=== PATIENT | male | born 1995 | race Two or more races ===

== ENCOUNTER 2024-05-22 22:35 | Emergency (ER) | payer SELFPAY ==
[2024-05-22 23:11] LABS: #Basophils 0.1 thou/uL (0.0-0.2); #Eosinophils 0.2 thou/uL (0.0-0.7); #Lymphocytes 2.4 thou/uL (1.20-3.40); #Monocytes 0.5 thou/uL (0.11-0.59); #Neutrophils 2.8 thou/uL (1.40-6.50); %Basophils 1.3 % (0.0-1.0); %Eosinophils 3.2 % (0.0-10.0); %Lymphocytes 40.6 % (21.0-51.0); %Monocytes 8.8 % (0.0-10.0); %Neutrophils 46.2 % (42.0-75.0); Hematocrit 44.9 % (42.0-52.0); Hemoglobin 14.8 g/dL (14.0-18.0); Mean Corpuscular Hemoglobin 27.6 pg (27.0-31.0); Mean Corpuscular Volume 83.7 fl (78.0-98.0); Mean Platelet Volume 6.3 fL (7.4-10.4); Platelet Count 309 10x3/uL (130-400); RBC Distribution Width 9.8 % (11.5-14.5); Red Blood Cell (RBC) Count 5.37 mill/uL (4.70-6.10)
[2024-05-22 23:24] LABS: Anion Gap 11 mmol/L (10-20); BUN (Urea Nitrogen) 21 mg/dL (8.9-20.6); Calc. Creatinine Clearance 0 mL/min (70-130); Calcium 9.9 mg/dL (7.8-10.44); Carbon Dioxide 27 mmol/L (22-29); Chloride 107 mmol/L (98-107); Estimated GFR 121; Glucose 97 mg/dL (70-105); Potassium 3.9 mmol/L (3.5-5.1); Sodium 141 mmol/L (136-145)
[2024-05-22] MEDS ORDERED: Lidocaine 1% (PF) 30 ML VIAL ONE (23:31)
[2024-05-23] MEDS ORDERED: Bacitracin 1 PK ONE (01:15)
[2024-05-23] MEDS ORDERED: Boostrix 0.5 ML (Tdap) VIAL (>/=7 yrs of age) ONE (01:16)
== END 2024-05-23 01:53 | disposition home or self-care (01) ==
LOC: NAV ERS 22:35
DX: S01.511A Laceration without foreign body of lip, initial encounter (principal); S01.81XA Laceration without foreign body of other part of head, initial encounter; Z23 Encounter for immunization; V89.2XXA Person injured in unspecified motor-vehicle accident, traffic, initial encounter
CPT/HCPCS: 12013; 70450; 72125; 80048; 85025; 85610; 90471; 90715

== ENCOUNTER 2024-05-29 10:44 | Emergency (ER) | payer SELFPAY | END 2024-05-29 11:28 | disposition home or self-care (01) | LOC: NAV ERS 10:44 | DX: S01.111D Laceration without foreign body of right eyelid and periocular area, subsequent encounter (principal); V29.99XD Rider (driver) (passenger) of other motorcycle injured in unspecified traffic accident, subsequent encounter ==